=== PATIENT | male | born 1960 | race Caucasian/White ===

== ENCOUNTER 2017-01-05 03:53 | Emergency (ER) | END 2017-01-05 10:48 | disposition home or self-care (01) | DX: R10.13 Epigastric pain (principal); R40.2252 Coma scale, best verbal response, oriented, at arrival to emergency department; R40.2142 Coma scale, eyes open, spontaneous, at arrival to emergency department; R40.2362 Coma scale, best motor response, obeys commands, at arrival to emergency department | CPT/HCPCS: 36415; 71010; 74176; 80053; 81001; 83690; 84484; 85025; 93005; 96374; 96375; 99285; J2270; J2405; J7030 ==

== ENCOUNTER 2017-01-19 10:17 | Inpatient (IN) | payer MEDICAID ==
[2017-01-19] VITALS (21 sets, daily range): BP systolic 129–155; BP diastolic 72–88; PULSE 48–64; RESP 11–28; TEMP 98.3
[~2017-01-19] VITALS: Ht 188 cm; Wt 81.8 kg
[~2017-01-19 10:17] MED LIST: HYDR-902 PO; ONDA4TAB14 PO; RANI150T9 PO
[2017-01-19] MEDS ORDERED: SOD CHLORIDE 0.9% 1,000 ML IV STA (10:28)
[2017-01-19] MEDS ORDERED: ONDANSETRON 4 MG INJ ONE ×2 (10:28→19:58)
[2017-01-19] MEDS ORDERED: HYDROmorphONE 1 MG/ML SYG IV STA (10:28)
[2017-01-19] MEDS ORDERED: HYDROmorphONE 1 MG/ML SYG ONE (10:28)
[2017-01-19] MEDS ORDERED: ONDANSETRON 4 MG INJ IV STA (10:28)
[2017-01-19] MEDS ORDERED: PANTOPRAZOLE 40 MG INJ ONE (10:29)
[2017-01-19] MEDS ORDERED: PANTOPRAZOLE 40 MG INJ IV ONE (10:30)
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
[2017-01-19 10:50] LABS: BASOPHILS % 0.3 % (0.0-2.0); EOSINOPHILS # 0.2 10^3/ul (0.0-0.5); EOSINOPHILS % 1.4 % (0.0-7.0); HEMATOCRIT 41.6 % (42.0-52.0); HEMOGLOBIN 14.1 g/dl (14.0-18.0); LYMPHOCYTES # 2.8 10^3/ul (0.8-2.9); MEAN CORPUSCULAR HEMOGLOBIN 32.3 pg (29.0-33.0); MEAN CORPUSCULAR HGB CONC 33.9 g/dl (32.0-37.0); MEAN CORPUSCULAR VOLUME 95.4 fl (82.0-101.0); MEAN PLATELET VOLUME 11.1 fl (7.4-10.4); MONOCYTES % 8.9 % (0.0-11.0); NEUTROPHIL # 7.5 10^3/ul (1.6-7.5); NEUTROPHILS % 65.2 % (39.0-77.0); PLATELET COUNT 340 10^3/UL (140-415); RED BLOOD COUNT 4.36 10^6/ul (4.70-6.10); RED CELL DISTRIBUTION WIDTH 12.5 % (11.5-14.5); WHITE BLOOD COUNT 11.5 10^3/ul (4.8-10.8)
[2017-01-19 11:04] LABS: INR 0.98
[2017-01-19 11:05] LABS: PARTIAL THROMBOPLASTIN TIME 25.5 Sec (25.0-35.0)
[2017-01-19 11:07] LABS: ALANINE AMINOTRANSFERASE 30 IU/L (13-69); ALBUMIN 4.4 g/dl (3.3-4.9); ALBUMIN/GLOBULIN RATIO 1.15; ALKALINE PHOSPHATASE 91 IU/L (42-121); ANION GAP 16 (8-16); ASPARTATE AMINO TRANSFERASE 69 IU/L (15-46); BILIRUBIN,INDIRECT 0.8 mg/dl (0-1.1); BILIRUBIN,TOTAL 0.8 mg/dl (0.2-1.3); BLOOD UREA NITROGEN 17 mg/dl (7-20); CALCIUM 9.7 mg/dl (8.4-10.2); CARBON DIOXIDE 27 mmol/L (21-31); CHLORIDE 104 mmol/L (97-110); CREATININE 0.83 mg/dl (0.61-1.24); GLUCOSE 120 mg/dl (70-220); POTASSIUM 3.9 mmol/L (3.5-5.1); SODIUM 143 mmol/L (135-144); TOTAL PROTEIN 8.2 g/dl (6.1-8.1)
[2017-01-19 11:20] LABS: TROPONIN-I < 0.012 ng/ml (0.00-0.12)
--- NOTE | 2017-01-19 11:29 | RADRPT ---
PROCEDURE: Chest x-ray CLINICAL INDICATION: Abdominal pain TECHNIQUE: Chest single view COMPARISON: 01/05/2070 FINDINGS: The heart is normal in size. The pulmonary vessels are normal in caliber. The lungs are clear. Th e costophrenic angles are sharp. The visualized bony thorax is unremarkable. IMPRESSION: No acute cardiopulmonary disease. RPTAT: HH .Ridge Muñoz MD, Date Time Electronically viewed and signed by .Ridge Muñoz MD, MD on 01/19/2017 11:29 .W/
[2017-01-19 12:39] LABS: ADD UMIC NO; UR ASCORBIC ACID 40 mg/dL (NEGATIVE); UR BACTERIA FEW /HPF (NONE SEEN); UR BILIRUBIN (Dip) NEGATIVE (NEGATIVE); UR BLOOD (Dip) NEGATIVE (NEGATIVE); UR BUDDING YEAST FEW /HPF (NONE SEEN); UR CLARITY SLIGHTLY CLOUDY (CLEAR); UR COLOR YELLOW (YELLOW); UR GLUCOSE (Dip) NEGATIVE (NEGATIVE); UR KETONES (Dip) NEGATIVE (NEGATIVE); UR LEUKOCYTE ESTERASE (Dip) NEGATIVE Leu/ul (NEGATIVE); UR NITRITE (Dip) NEGATIVE (NEGATIVE); UR RBC 1 /HPF (0-5); UR SPECIFIC GRAVITY (Dip) 1.018 (1.003-1.030); UR TOTAL PROTEIN (Dip) NEGATIVE (NEGATIVE); UR UROBILINOGEN (Dip) NEGATIVE (NEGATIVE)
--- NOTE | 2017-01-19 13:10 | RADRPT ---
PROCEDURE: US Abdomen Limited . CLINICAL INDICATION: Abdominal pain TECHNIQUE: Multiple real-time images were acquired of the patient's right upper quadrant abdomen u tilizing a high resolution transducer. COMPARISON: CT January 05, 2017 FINDINGS: The liver measures 15.7 cm and demonstrates a normal echogenicity. The gallbladder is filled with a moderate amount of bile. Multiple echogenic, shadowing stones are identified in the gallbladder. Th e largest stone measures up to 1.9 cm. Stones are seen within the gallbladder neck. The gallbladder wall is at the upper limits of normal at 3.0 mm. No pericholecystic fluid is noted. The common bile duct measures 4.6 mm in diameter. The pancreas is not well visualized. Antegrade flow is seen in the portal vein. Right kidney measures 10.0 cm. Right kidney demonstrates a normal echogenicity. Mild right hydrone phrosis is identified. No echogenic, shadowing stones or solid masses are seen. IMPRESSION: Cholelithiasis with a gallbladder wall that measures at the upper limit of normal for thickness. If there is clinical suspicion for cholecystitis further characterization with CT, MRI or HIDA scan cou ld be helpful. Mild right hydronephrosis. Etiology is uncertain. If further characterization is needed repeat CT co uld be helpful. Pancreas not well visualized. If characterization of this structure is needed repeat exam or CT/MRI is recommended. RPTAT: AA .Augie Arango MD, MD Date Time Electronically viewed and signed by .Augie Arango MD, MD on 01/19/2017 13:10 .P/
[2017-01-19] MEDS ORDERED: CEFTRIAXONE 1 GM/50 ML (PMX) 50 ML IVPB ONE (14:30)
[2017-01-19] MEDS ORDERED: ONDANSETRON 4 MG INJ IV PRN ×4 (15:00→21:00)
[2017-01-19] MEDS ORDERED: ACETAMINOPHEN 325 MG TAB PO PRN ×3 (15:00→20:00)
[2017-01-19] MEDS: SOD CHLORIDE 0.9% 1,000 ML IV SCH (15:34)
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
[2017-01-19] MEDS ORDERED: ACETAMINOPHEN 650 MG SUPP PR PRN (16:00)
[2017-01-19] MEDS ORDERED: DOCUSATE SODIUM 100 MG CAP PO PRN (16:00)
[2017-01-19] MEDS ORDERED: NACL 0.9% 3 ML SYG IV SCH (16:00)
[2017-01-19] MEDS ORDERED: HYDROmorphONE 0.5 MG/0.5 ML SYG IV PRN (16:00)
[2017-01-19] MEDS: ACYCLOVIR 500 MG in SOD CHLORIDE 0.9% 100 ML IVPB SCH ×2 (16:30→23:00)
[2017-01-19] MEDS: PANTOPRAZOLE 40 MG INJ IV SCH (18:00)
--- NOTE | 2017-01-19 19:27 | CONS ---
Date/Time of Note Date/Time of Note DATE: 01/19/17 TIME: 19:25 Consultation Date/Type/Reason Admit Date/Time Date of Consultation: Jan 19, 2017 Past Medical History Medical History: other ([place] palsy) Past Surgical History Past Surgical Hx: no surgical history Family History Significant Family History: no pertinent family hx Social History Alcohol Use: none Smoking Status: Never smoker Drug Use: none Exam/Review of Systems Vital Signs Vitals Vital Signs Date Time Temp Pulse Resp B/P Pulse Ox O2 Delivery O2 Flow Rate FiO2 01/19/17 17:49 98.3 72 16 143/82 97 Room Air Exam Constitutional: alert, oriented, well developed Psych: no complaints Head: normocephalic Eyes: nl conjunctiva Neck: supple Respiratory: clear to auscultation Cardiovascular: regular rate and rhythm Gastrointestinal: soft, tender (to RUQ ) Musculoskeletal: nl extremities to inspection Skin: nl turgor Results Result Diagram: 01/19/17 1022 01/19/17 1022 Results 24 hrs Laboratory Tests Test 01/19/17 10:22 01/19/17 11:30 01/19/17 16:15 White Blood Count 11.5 #H Red Blood Count 4.36 L Hemoglobin 14.1 Hematocrit 41.6 L Mean Corpuscular Volume 95.4 Mean Corpuscular Hemoglobin 32.3 Mean Corpuscular Hemoglobin Concent 33.9 Red Cell Distribution Width 12.5 Platelet Count 340 # Mean Platelet Volume 11.1 H Neutrophils % 65.2 Lymphocytes % 24.0 Monocytes % 8.9 Eosinophils % 1.4 Basophils % 0.3 Nucleated Red Blood Cells % 0.0 Neutrophils # 7.5 Lymphocytes # 2.8 Monocytes # 1.0 H Eosinophils # 0.2 Basophils # 0.0 Nucleated Red Blood Cells # 0.0 Prothrombin Time 13.0 Prothrombin Time Ratio 1.0 INR International Normalized Ratio 0.98 Activated Partial Thromboplast Time 25.5 Sodium Level 143 Potassium Level 3.9 Chloride Level 104 Carbon Dioxide Level 27 Anion Gap 16 Blood Urea Nitrogen 17 Creatinine 0.83 Glucose Level 120 Calcium Level 9.7 Total Bilirubin 0.8 Direct Bilirubin 0.00 Indirect Bilirubin 0.8 Aspartate Amino Transf (AST/SGOT) 69 H Alanine Aminotransferase (ALT/SGPT) 30 Alkaline Phosphatase 91 Troponin I < 0.012 Total Protein 8.2 H Albumin 4.4 Globulin 3.80 H Albumin/Globulin Ratio 1.15 Lipase 84 Urine Color YELLOW Urine Clarity SLIGHTLY CLOUDY A Urine pH 8.0 Urine Specific [place] 1.018 Urine Ketones NEGATIVE Urine Nitrite NEGATIVE Urine Bilirubin NEGATIVE Urine Urobilinogen NEGATIVE Urine Leukocyte Esterase NEGATIVE Urine Microscopic RBC 1 Urine Microscopic WBC 1 Urine Bacteria FEW A Urine Yeast (Budding) FEW A Urine Hemoglobin NEGATIVE Urine Glucose NEGATIVE Urine Total Protein NEGATIVE HIV (1&2) Antibody NEGATIVE Medications Medications Current Medications Sodium Chloride (NS) 1,000 ml @ 75 mls/hr [id number] IV ; Start 01/19/17 at 15:34 Ondansetron HCl (Zofran Inj) 4 mg Q6H PRN IV NAUSEA AND/OR VOMITING; Start at 16:00 Acetaminophen (Tylenol Tab) 650 mg Q6H PRN PO PAIN LEVEL 1-3 OR FEVER; Start 01/19/17 at 16:00 Acetaminophen (Tylenol Supp) 650 mg Q6H PRN [place] PAIN LEVEL 1-3 OR FEVER; Start 01/19/17 at 16:00 Hydromorphone HCl (Dilaudid) 0.5 mg Q4H PRN IV SEVERE PAIN LEVEL 7-10; Start 01/19/17 at 16:00 Docusate Sodium 100 mg 100 mg Q12H PRN PO CONSTIPATION; Start 01/19/17 at 16: 00 Acyclovir/Sodium Chloride (Zovirax/NS) 100 ml @ 100 mls/hr Q8 IVPB ; Start at 16:30 Pantoprazole (Protonix Iv) 40 mg BID@06,18 IV ; Start 01/19/17 at 18:00 ONEIL JOHNSON MD Jan 19, 2017 19:26
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
[2017-01-19] MEDS: D5-NS + KCL 20 MEQ 1,000 ML IV SCH ×2 (19:31→23:20)
[2017-01-19] MEDS ORDERED: LIDOCAINE 2%/EPI 30 ML INJ ONE (19:37)
[2017-01-19] MEDS ORDERED: BUPIVACAINE 0.25% (MPF) 30 ML INJ ONE (19:37)
[2017-01-19] MEDS ORDERED: LIDOCAINE 2% (SDV) 5 ML INJ ONE (19:41)
[2017-01-19] MEDS ORDERED: SUCCINYLCHOLINE CHLORIDE 100 MG/5 ML SYG IV ONE (19:41)
[2017-01-19] MEDS ORDERED: PROPOFOL 20 ML ONE (19:41)
[2017-01-19] MEDS ORDERED: FENTAnyl 50 MCG/ML VIAL ONE (19:42)
[2017-01-19] MEDS ORDERED: MIDAZOLAM 1 MG/ML 2 ML INJ ONE (19:42)
[2017-01-19] MEDS ORDERED: CEFAZOLIN 1 GM INJ ONE (19:57)
[2017-01-19] MEDS ORDERED: METOCLOPRAMIDE 10 MG INJ ONE (19:58)
[2017-01-19] MEDS ORDERED: ROCURONIUM 50 MG INJ ONE (19:59)
[2017-01-19] MEDS ORDERED: morphine 2 MG INJ IV PRN (20:00)
[2017-01-19] MEDS: AMPICILLIN/SULB 3 GM/NS (PMX) 100 ML IVPB SCH (20:00)
[2017-01-19] MEDS ORDERED: IBUPROFEN 600 MG TAB PO PRN (20:00)
[2017-01-19] MEDS ORDERED: SUGAMMADEX SODIUM 200 MG/2 ML VIAL IV ONE (20:14)
[2017-01-19] MEDS ORDERED: KETOROLAC 30 MG INJ ONE (20:14)
--- NOTE | 2017-01-19 20:23 | SIPON ---
Date/Time of Note Date/Time of Note DATE: 01/19/17 TIME: 20:22 Operative Report Preoperative Diagnosis Cholelithiasis Postoperative Diagnosis Same Operation/Procedure Performed Laparoscopic cholecystectomy Surgeon see signature line marketing administrative assistant None Anesthesia: general Estimated blood loss: 10 - 50 ml's Transfusion Required none Specimen Gallbladder with stone Grafts/Implants none Complications none ONEIL JOHNSON MD Jan 19, 2017 20:23
--- NOTE | 2017-01-19 20:27 | OPR ---
Date/Time of Note Date/Time of Note DATE: 01/19/17 TIME: 20:23 Operative Report Procedure Date: Jan 19, 2017 Preoperative Diagnosis Cholelithiasis Postoperative Diagnosis Same Operation/Procedure Performed Laparoscopic cholecystectomy Surgeon see signature line Dinkey Driver None Anesthesia Type: general Anesthesiologist: AMBROSIO TORRES MD Estimated Blood Loss: 0 - 10 ml's Transfusion none Specimen Gallbladder with stones Grafts/Implants none Complications none Pt Condition Post Procedure: stable Disposition: PACU Indications The patient is a 56-year-old male with biliary colic versus cholecystitis. I discussed proceeding with a laparoscopic, possible open, cholecystectomy, possible cholangiogram. All benefits risks and alternatives were discussed in detail with the patient. All questions answered. The patient elects to proceed Procedure Description The patient was brought to operative room and placed supine on the table. After preop antibiotics and SCDs were applied, the patient was intubated. The abdomen was cleaned, prepped and draped in usual sterile fashion. All incisions were infiltrated with 1% lidocaine with epi prior to incision. An 11 mm incision was made in the umbilicus. Using a 5 minute laparoscopic containing trocar, the abdomen was entered direct vision insufflated 50 mm of CO2. The following trochars and placed direct vision a right upper quadrant 5 mm right lower quadrant 5 mm subxiphoid 5 mm. The 5 mm umbilical trocar was changed 11 mm direct vision. Gallbladder was thickened and consistent with chronic cholecystitis. I grasped the gallbladder at the fundus and retracted over the liver. Leonard's pouch was easily identified and retracted laterally. The peritoneum of the Leonard's was scored medially and laterally. I was able to dissect out skeletonize the cystic duct and artery. I dissected the gallbladder off the cystic plate of the liver. I I identified my critical view of safety. I saw the cystic duct and artery with no intervening structures. Both the duct and artery were clipped twice proximally once distally individually and divided. The gallbladder was then removed from the gallbladder fossa with electrocautery. He was placed in Endo Catch bag and removed and the 12 mm trocar site. I visualized the gallbladder fossa. It was hemostatic. There was no evidence of bleeding or bile staining. I desufflated the abdomen and removed all trochars. The fascia of the 12 mm trocar site was closed with 0 Vicryl. Skin incisions were closed with 4 Monocryl, Mastisol, and Steri-Strips. A 2 x 2 gauze and Tegaderm was placed over the bill excision only. *Procedure well was extubated in the OR and transferred to recovery in stable condition ONEIL JOHNSON MD Jan 19, 2017 20:27
[2017-01-19] MEDS ORDERED: PROCHLORPERAZINE 10 MG INJ IV PRN (21:00)
[2017-01-19] MEDS ORDERED: HYDROmorphONE (0.2 MG/ML) 10ML SYG IV PRN ×2 (21:00)
[2017-01-19] MEDS ORDERED: FAMOTIDINE 20 MG INJ IV SCH (21:00)
[2017-01-19] MEDS ORDERED: OXYCODONE/ACETAMINOPHEN (5/325) TAB PO PRN ×2 (21:00)
[2017-01-19] MEDS ORDERED: DIPHENHYDRAMINE 50 MG INJ IV PRN (21:00)
[2017-01-19] MEDS ORDERED: MEPERIDINE 25 MG INJ IV PRN (21:00)
[2017-01-19] MEDS ORDERED: FENTAnyl 50 MCG/ML VIAL IV PRN (21:00)
[2017-01-20 00:15] VITALS: BP 132/74; PULSE 48; RESP 17
[2017-01-20 00:43] VITALS: BP 139/83; RESP 20
[2017-01-20] MEDS: ACYCLOVIR 500 MG in SOD CHLORIDE 0.9% 100 ML IVPB SCH ×4 (00:51→21:10)
[2017-01-20] MEDS: AMPICILLIN/SULB 3 GM/NS (PMX) 100 ML IVPB SCH ×3 (02:35→13:22)
[2017-01-20] MEDS: SOD CHLORIDE 0.9% 1,000 ML IV SCH ×2 (04:54→18:14)
[2017-01-20] MEDS: D5-NS + KCL 20 MEQ 1,000 ML IV SCH ×3 (05:14→15:31)
[2017-01-20 05:20] LABS: BASOPHILS % 0.4 % (0.0-2.0); EOSINOPHILS # 0.1 10^3/ul (0.0-0.5); EOSINOPHILS % 2.1 % (0.0-7.0); HEMATOCRIT 36.7 % (42.0-52.0); HEMOGLOBIN 12.3 g/dl (14.0-18.0); LYMPHOCYTES # 0.9 10^3/ul (0.8-2.9); LYMPHOCYTES % 17.4 % (15.0-51.0); MEAN CORPUSCULAR HEMOGLOBIN 31.9 pg (29.0-33.0); MEAN CORPUSCULAR HGB CONC 33.5 g/dl (32.0-37.0); MEAN CORPUSCULAR VOLUME 95.1 fl (82.0-101.0); MEAN PLATELET VOLUME 11.3 fl (7.4-10.4); MONOCYTE # 0.7 10^3/ul (0.3-0.9); MONOCYTES % 12.6 % (0.0-11.0); NEUTROPHIL # 3.5 10^3/ul (1.6-7.5); NEUTROPHILS % 67.3 % (39.0-77.0); PLATELET COUNT 217 10^3/UL (140-415); RED BLOOD COUNT 3.86 10^6/ul (4.70-6.10); RED CELL DISTRIBUTION WIDTH 12.6 % (11.5-14.5); WHITE BLOOD COUNT 5.2 10^3/ul (4.8-10.8)
[2017-01-20] MEDS: PANTOPRAZOLE 40 MG INJ IV SCH (06:15)
[2017-01-20] MEDS: HYDROCODONE/APAP (5/325) TAB PO PRN ×3 (06:17→21:10)
[2017-01-20] MEDS: ENOXAPARIN 40 MG/0.4 ML SYG SC SCH (06:18)
[2017-01-20 07:26] VITALS: BP 139/80; RESP 18
[2017-01-20 09:36] LABS: ALBUMIN 3.6 g/dl (3.3-4.9); ALBUMIN/GLOBULIN RATIO 1.2; BILIRUBIN,DIRECT 0.4 mg/dl (0.00-0.20); BILIRUBIN,INDIRECT 1.3 mg/dl (0-1.1); BILIRUBIN,TOTAL 1.7 mg/dl (0.2-1.3); CALCIUM 8.5 mg/dl (8.4-10.2); CHOL/HDL RATIO 3.2 RATIO; CREATININE 0.91 mg/dl (0.61-1.24); MAGNESIUM 1.8 mg/dl (1.7-2.5); PHOSPHORUS 3.2 mg/dl (2.5-4.9); POTASSIUM 3.8 mmol/L (3.5-5.1); TOTAL PROTEIN 6.6 g/dl (6.1-8.1)
[2017-01-20 09:48] LABS: THYROID STIMULATING HORMONE 2.63 MIU/L (0.465-4.680)
[2017-01-20 15:23] VITALS: BP 140/80; RESP 18
--- NOTE | 2017-01-20 17:34 | PN ---
Date/Time of Note Date/Time of Note DATE: 01/20/17 TIME: 17:32 Assessment/Plan VTE Prophylaxis VTE Prophylaxis Intervention: SCD's Lines/Catheters IV C[facility]ter Type (from [facility]): Peripheral IV Urinary Cath still in place: No Assessment/Plan Assessment/Plan 1. Acute cholecystitis s/p laproscopic cholecystectomy 2. Recent outbreak of HSV/shingles. -Patient with active lesions currently. Therefore, we will treat with Acyclovir 5 days course along with isolation precautions. 3. Lala's palsy, recent -Patient on steroid treatment as outpatient. At this time, we will hold off to therapy and will defer for outpatient follow-up. 4. Leukocytosis, mild, likely secondary to #1 and #2. -Treatment as above. SCD for DVT prophylaxis Subjective 24 Hr Interval Summary Free Text/Dictation s/p laproscopic cholecystectomy doing well, still c/o abd nunez and not passing gas Exam/Review of Systems Vital Signs Vitals Vital Signs Date Time Temp Pulse Resp B/P Pulse Ox O2 Delivery O2 Flow Rate FiO2 01/20/17 15:23 98.0 62 18 140/80 98 01/20/17 00:15 Nasal Cannula 2.0 Intake and Output 01/19/17 01/19/17 01/20/17 15:00 23:00 07:00 Intake Total 1000 ml 820 ml 1450 ml Output Total 15 ml 700 ml Balance 1000 ml 805 ml 750 ml Exam Constitutional: alert Psych: no complaints Head: normocephalic Eyes: nl conjunctiva ENMT: nl external ears & nose Neck: non-tender, supple Respiratory: clear to auscultation, diminished breath sounds, normal air movement Cardiovascular: nl pulses, regular rate and rhythm Gastrointestinal: non-tender, soft Musculoskeletal: muscle tone, muscle weakness, nl extremities to inspection, nl gait and stance Neurological: [employer] CROSSING GUARD II-XII intact, nl mental status, nl speech, nl strength Results Result Diagram: 01/20/17 0439 01/20/17 0740 Results 24 hrs Laboratory Tests Test 01/20/17 04:39 01/20/17 07:40 White Blood Count 5.2 # Red Blood Count 3.86 L Hemoglobin 12.3 L Hematocrit 36.7 L Mean Corpuscular Volume 95.1 Mean Corpuscular Hemoglobin 31.9 Mean Corpuscular Hemoglobin Concent 33.5 Red Cell Distribution Width 12.6 Platelet Count 217 # Mean Platelet Volume 11.3 H Neutrophils % 67.3 Lymphocytes % 17.4 Monocytes % 12.6 H Eosinophils % 2.1 Basophils % 0.4 Nucleated Red Blood Cells % 0.0 Neutrophils # 3.5 Lymphocytes # 0.9 Monocytes # 0.7 Eosinophils # 0.1 Basophils # 0.0 Nucleated Red Blood Cells # 0.0 Hemoglobin A1c 5.1 Sodium Level 141 Potassium Level 3.8 Chloride Level 106 Carbon Dioxide Level 27 Anion Gap 12 Blood Urea Nitrogen 11 Creatinine 0.91 Glucose Level 90 Calcium Level 8.5 Phosphorus Level 3.2 Magnesium Level 1.8 Total Bilirubin 1.7 H Direct Bilirubin 0.40 #H Indirect Bilirubin 1.3 H Aspartate Amino Transf (AST/SGOT) 965 #H Alanine Aminotransferase (ALT/SGPT) 525 H Alkaline Phosphatase 115 Total Protein 6.6 # Albumin 3.6 Globulin 3.00 Albumin/Globulin Ratio 1.20 Triglycerides Level 95 Cholesterol Level 152 LDL Cholesterol, Calculated 86 HDL Cholesterol 47 Cholesterol/HDL Ratio 3.2 Thyroid Stimulating Hormone (TSH) 2.630 Medications Medications Current Medications Sodium Chloride (NS) 1,000 ml @ 75 mls/hr [id number] IV ; Start 01/19/17 at 15:34 Acetaminophen (Tylenol Supp) 650 mg Q6H PRN [place] PAIN LEVEL 1-3 OR FEVER; Start 01/19/17 at 16:00 Hydromorphone HCl (Dilaudid) 0.5 mg Q4H PRN IV SEVERE PAIN LEVEL 7-10; Start 01/19/17 at 16:00 Docusate Sodium 100 mg 100 mg Q12H PRN PO CONSTIPATION; Start 01/19/17 at 16: 00 Acyclovir 500 mg/ Sodium Chloride 100 ml @ 100 mls/hr Q8 IVPB Last administered on 01/20/17t 15:50; Admin Dose 100 MLS/HR; Start 01/19/17 at 16: 30 Ampicillin Sodium/ Sulbactam Sodium (Unasyn 3gm/NS (Pmx)) 100 ml @ 200 mls/hr Q6H IVPB Last administered on 01/20/17t 13:22; Admin Dose 200 MLS/HR; Start 01/19/17 at 20:00; Stop 01/20/17 at 19:59 Morphine Sulfate (morphine) 2 mg Q2H PRN IV PAIN LEVEL 6-10; Start 01/19/17 at 20:00 Acetaminophen/ Hydrocodone Bitart ([place] (5/325)) 1 tab Q6H PRN PO PAIN LEVEL 6 -10 Last administered on 01/20/17 11:52; Admin Dose 1 TAB; Start 01/19/17 at 20:00 Acetaminophen (Tylenol Tab) 650 mg Q6H PRN PO PAIN AND OR ELEVATED TEMP; Start 01/19/17 at 20:00 Ibuprofen (Motrin) 600 mg Q6H PRN PO PAIN LEVEL 1-5; Start 01/19/17 at 20:00 Ondansetron HCl 4 mg 4 mg Q6H PRN IV NAUSEA AND/OR VOMITING; Start 01/19/17 at 20:00 Potassium Chloride/Dextrose/ Sod Cl (D5-NS + KCl 20 Meq) 1,000 ml @ 100 mls/hr Q10H IV Last administered on 01/20/17 14:08; Admin Dose 100 MLS/HR; Start at 19:31 Enoxaparin Sodium (Lovenox) 40 mg DAILY@07 SC Last administered on 01/20/17 06:18; Admin Dose 40 MG; Start 01/20/17 at 07:00 Famotidine (Pepcid Iv) 20 mg BID IV ; Start 01/20/17 at 21:00 NIRANJAN MORA MD Jan 20, 2017 17:34
[2017-01-20 19:40] VITALS: BP 137/81; RESP 18
--- NOTE | 2017-01-20 19:53 | PN ---
Date/Time of Note Date/Time of Note DATE: 01/20/17 TIME: 19:52 Assessment/Plan Lines/Catheters IV C[facility] Type (from [facility]): Peripheral IV Slater in Place (from Nrs): No Assessment/Plan Assessment/Plan Postop day 1 status post lap danielle Elevated LFTs today, concerned about common bile duct stone If LFTs persist tomorrow, recommend MRCP If LFTs normalized, can discharge home Subjective 24 Hr Interval Summary Constitutional: other (Complaining of some abdominal pain, passing flatus) Exam/Review of Systems Vital Signs Vitals Vital Signs Date Time Temp Pulse Resp B/P Pulse Ox O2 Delivery O2 Flow Rate FiO2 01/20/17 15:23 98.0 62 18 140/80 98 01/20/17 00:15 Nasal Cannula 2.0 Intake and Output 01/19/17 01/19/17 01/20/17 15:00 23:00 07:00 Intake Total 1000 ml 820 ml 1450 ml Output Total 15 ml 700 ml Balance 1000 ml 805 ml 750 ml Exam Constitutional: alert, oriented, well developed Respiratory: clear to auscultation Cardiovascular: regular rate and rhythm Results Result Diagram: 01/20/17 0439 01/20/17 0740 ONEIL JOHNSON MD Jan 20, 2017 19:53
[2017-01-20] MEDS: FAMOTIDINE 20 MG INJ IV SCH (21:10)
[2017-01-21 02:00] VITALS: BP 147/90; RESP 18
[2017-01-21] MEDS: D5-NS + KCL 20 MEQ 1,000 ML IV SCH ×2 (02:23→11:31)
[2017-01-21] MEDS: ACYCLOVIR 500 MG in SOD CHLORIDE 0.9% 100 ML IVPB SCH ×2 (05:46→13:25)
[2017-01-21 05:58] LABS: BASOPHILS % 0.4 % (0.0-2.0); EOSINOPHILS # 0.3 10^3/ul (0.0-0.5); EOSINOPHILS % 5.4 % (0.0-7.0); HEMATOCRIT 40.7 % (42.0-52.0); HEMOGLOBIN 13.4 g/dl (14.0-18.0); LYMPHOCYTES % 17.2 % (15.0-51.0); MEAN CORPUSCULAR HEMOGLOBIN 31.5 pg (29.0-33.0); MEAN CORPUSCULAR HGB CONC 32.9 g/dl (32.0-37.0); MEAN CORPUSCULAR VOLUME 95.8 fl (82.0-101.0); MEAN PLATELET VOLUME 11.7 fl (7.4-10.4); MONOCYTE # 0.6 10^3/ul (0.3-0.9); MONOCYTES % 10.7 % (0.0-11.0); NEUTROPHIL # 3.8 10^3/ul (1.6-7.5); NEUTROPHILS % 65.9 % (39.0-77.0); PLATELET COUNT 242 10^3/UL (140-415); RED BLOOD COUNT 4.25 10^6/ul (4.70-6.10); RED CELL DISTRIBUTION WIDTH 12.5 % (11.5-14.5); WHITE BLOOD COUNT 5.7 10^3/ul (4.8-10.8)
[2017-01-21] MEDS: ENOXAPARIN 40 MG/0.4 ML SYG SC SCH (06:21)
[2017-01-21 06:45] LABS: ALBUMIN 3.8 g/dl (3.3-4.9); ALBUMIN/GLOBULIN RATIO 1.22; BILIRUBIN,INDIRECT 0.7 mg/dl (0-1.1); BILIRUBIN,TOTAL 0.7 mg/dl (0.2-1.3); CALCIUM 8.9 mg/dl (8.4-10.2); CREATININE 0.86 mg/dl (0.61-1.24); POTASSIUM 4.5 mmol/L (3.5-5.1); TOTAL PROTEIN 6.9 g/dl (6.1-8.1)
[2017-01-21] MEDS: SOD CHLORIDE 0.9% 1,000 ML IV SCH (07:34)
[2017-01-21 07:58] VITALS: BP 128/71; RESP 20
[2017-01-21 08:22] VITALS: BP 147/84; RESP 20
[2017-01-21] MEDS: FAMOTIDINE 20 MG INJ IV SCH (08:52)
--- NOTE | 2017-01-21 11:07 | PN ---
Date/Time of Note Date/Time of Note DATE: 01/21/17 TIME: 11:05 Assessment/Plan VTE Prophylaxis VTE Prophylaxis Intervention: SCD's Lines/Catheters IV [facility]ter Type (from [facility]): Peripheral IV Urinary Cath still in place: No Assessment/Plan Assessment/Plan 1. Acute cholecystitis s/p laproscopic cholecystectomy 2. Recent outbreak of HSV/shingles. -Patient with active lesions currently. Therefore, we will treat with Acyclovir 5 days course along with isolation precautions. 3. Lala's palsy, recent -Patient on steroid treatment as outpatient. At this time, we will hold off to therapy and will defer for outpatient follow-up. 4. Leukocytosis, mild, likely secondary to #1 and #2. -Treatment as above. SCD for DVT prophylaxis D/c home today after pt voids Subjective 24 Hr Interval Summary Free Text/Dictation PT STABLE, waiting for bed Exam/Review of Systems Vital Signs Vitals Vital Signs Date Time Temp Pulse Resp B/P Pulse Ox O2 Delivery O2 Flow Rate FiO2 01/21/17 08:22 98.6 50 20 147/84 97 01/20/17 00:15 Nasal Cannula 2.0 Intake and Output 01/20/17 01/20/17 01/21/17 15:00 23:00 07:00 Intake Total 800 ml 1080 ml 1300 ml Output Total 2200 ml Balance 800 ml 1080 ml -900 ml Exam Constitutional: alert Psych: no complaints Head: normocephalic Eyes: nl conjunctiva ENMT: nl external ears & nose Neck: non-tender, supple Respiratory: clear to auscultation, diminished breath sounds, normal air movement Cardiovascular: nl pulses, regular rate and rhythm Gastrointestinal: non-tender, soft Musculoskeletal: muscle tone, muscle weakness, nl extremities to inspection, nl gait and stance Neurological: FIBERGLASS MODEL MAKER II-XII intact, nl mental status, nl speech, nl strength Results Result Diagram: 01/21/17 0436 01/21/17 0436 Results 24 hrs Laboratory Tests Test 01/21/17 04:36 White Blood Count 5.7 Red Blood Count 4.25 L Hemoglobin 13.4 L Hematocrit 40.7 L Mean Corpuscular Volume 95.8 Mean Corpuscular Hemoglobin 31.5 Mean Corpuscular Hemoglobin Concent 32.9 Red Cell Distribution Width 12.5 Platelet Count 242 Mean Platelet Volume 11.7 H Neutrophils % 65.9 Lymphocytes % 17.2 Monocytes % 10.7 Eosinophils % 5.4 Basophils % 0.4 Nucleated Red Blood Cells % 0.0 Neutrophils # 3.8 Lymphocytes # 1.0 Monocytes # 0.6 Eosinophils # 0.3 Basophils # 0.0 Nucleated Red Blood Cells # 0.0 Sodium Level 143 Potassium Level 4.5 Chloride Level 105 Carbon Dioxide Level 30 Anion Gap 13 Blood Urea Nitrogen 7 Creatinine 0.86 Glucose Level 93 Calcium Level 8.9 Total Bilirubin 0.7 Direct Bilirubin 0.00 # Indirect Bilirubin 0.7 Aspartate Amino Transf (AST/SGOT) 305 #H Alanine Aminotransferase (ALT/SGPT) 411 H Alkaline Phosphatase 119 Total Protein 6.9 Albumin 3.8 Globulin 3.10 Albumin/Globulin Ratio 1.22 Lipase 44 Medications Medications Current Medications Sodium Chloride (NS) 1,000 ml @ 75 mls/hr [id number] IV ; Start 01/19/17 at 15:34 Acetaminophen (Tylenol Supp) 650 mg Q6H PRN [place] PAIN LEVEL 1-3 OR FEVER; Start 01/19/17 at 16:00 Hydromorphone HCl (Dilaudid) 0.5 mg Q4H PRN IV SEVERE PAIN LEVEL 7-10; Start 01/19/17 at 16:00 Docusate Sodium 100 mg 100 mg Q12H PRN PO CONSTIPATION; Start 01/19/17 at 16: 00 Acyclovir/Sodium Chloride (Zovirax/NS) 100 ml @ 100 mls/hr Q8 IVPB Last administered on 01/21/17 05:46; Admin Dose 100 MLS/HR; Start 01/19/17 at 16: 30 Morphine Sulfate (morphine) 2 mg Q2H PRN IV PAIN LEVEL 6-10; Start 01/19/17 at 20:00 Acetaminophen/ Hydrocodone Bitart ([place] (5/325)) 1 tab Q6H PRN PO PAIN LEVEL 6 -10 Last administered on 01/20/17 21:10; Admin Dose 1 TAB; Start 01/19/17 at 20:00 Acetaminophen (Tylenol Tab) 650 mg Q6H PRN PO PAIN AND OR ELEVATED TEMP; Start 01/19/17 at 20:00 Ibuprofen (Motrin) 600 mg Q6H PRN PO PAIN LEVEL 1-5; Start 01/19/17 at 20:00 Ondansetron HCl 4 mg 4 mg Q6H PRN IV NAUSEA AND/OR VOMITING; Start 01/19/17 at 20:00 Potassium Chloride/Dextrose/ Sod Cl (D5-NS + KCl 20 Meq) 1,000 ml @ 100 mls/hr Q10H IV Last administered on 01/21/17 02:23; Admin Dose 100 MLS/HR; Start at 19:31 Enoxaparin Sodium (Lovenox) 40 mg DAILY@07 SC Last administered on 01/21/17 06:21; Admin Dose 40 MG; Start 01/20/17 at 07:00 Famotidine (Pepcid Iv) 20 mg BID IV Last administered on 01/21/17 08:52; Admin Dose 20 MG; Start 01/20/17 at 21:00 NIRANJAN MORA MD Jan 21, 2017 11:07
--- NOTE | 2017-01-21 11:08 | PDOCDIS ---
Discharge Instructions CONDITION Patient Condition: Good HOME CARE INSTRUCTIONS: Special Diet: Regular ACTIVITY: Activity Restrictions: Slowly Increase Activity Rest between Activity Avoid heavy lifting Avoid Heavy Housework FOLLOW UP/APPOINTMENTS Follow-up Plan follow up with her own PMD in 1-2 week after discharge, Follow up with general surgery in 1-2 week NIRANJAN MORA MD Jan 21, 2017 11:08
[2017-01-21] MEDS ORDERED: HYDR-906 PO (11:12)
[2017-01-21] MEDS ORDERED: ONDA4TAB14 PO (11:12)
[2017-01-21] MEDS ORDERED: RANI150T9 PO (11:12)
[2017-01-21] MEDS ORDERED: ACYC400T2 PO (11:12)
[2017-01-21] MEDS ORDERED: GABA100C PO (11:13)
[2017-01-21 12:32] LABS: HSV 2 IGG ANTIBODY <0.90 index
[2017-01-21] MEDS: HYDROCODONE/APAP (5/325) TAB PO PRN (13:13)
--- NOTE | 2017-01-21 18:53 | DS ---
Date/Time of Note Date/Time of Note DATE: 01/21/17 TIME: 18:53 Discharge Summary Admission/Discharge Info Admit Date/Time Jan 19, 2017 at 20:31 Discharge Date/Time Jan 21, 2017 at 14:54 Discharge Diagnosis 1. Acute cholecystitis s/p laproscopic cholecystectomy 2. Recent outbreak of HSV/shingles. 3. Lala's palsy, recent 4. Leukocytosis, mild, likely secondary to #1 and #2 Patient Condition: Good Consults General surgery Procedures laproscopic cholecystectomy By Hx of Present Illness 56-year-old male with a past medical history of recently diagnosed with shingles/HSV, Lala's palsy for which patient is also on Medrol Dosepak outpatient, presented to the emergency room for evaluation of generalized abdominal pain. Patient reports pain mostly epigastric area, and all 4 quadrant. He also had associated nausea. He denied any fever, chills,vomiting, hematemesis,hematochezia,melena,dysuria,urgency,hematuria, diarrhea, or constipation. Patient also denies chest pain, palpitation, shortness of breath , headache, confusion, or other constitutional symptoms. In the emergency room, patient's initial labs showed elevated WBC 11,500, mildly elevated AST 69. Otherwise unremarkable. A urinalysis is negative for any UTI. Patient's gallbladder ultrasound showed cholelithiasis with some gallbladder wall thickening suggestive of cholecystitis. Patient was treated with ceftriaxone, Protonix, normal saline, Dilaudid and Zofran in the emergency room and a surgery consultation with Dr. Wyman was called and was admitted for further evaluation. he was admitted for leucocytosis, acute cholecystitis,. started on IV abx . Hospital Course pt was treated with IV abx, he was evaluated by Gen surgery and underwent Laproscopic cholecystectomy./ post op course was unremarkable except continuous Abd pain. he was given IV pain meds for few days post op. he also had recent outbreak of shingles with Humphreys palsy. he was treated with acyclovir for it, also continued on steroids and givenvpain meds on discharge he has been explained about discharge plan and he understood it. Home Meds Active Scripts Gabapentin* (Neurontin*) 100 Mg Capsule, 100 MG PO BID, #30 CAP Prov:NIRANJAN MORA MD 01/21/17 Hydrocodone/Acetaminophen ([place] 5-325 Tablet) 1 Each Tablet, 1 EACH PO Q8, #20 TAB Prov:NIRANJAN MORA MD 01/21/17 Acyclovir* (Acyclovir*) 400 Mg Tablet, 400 MG PO TID for shingles for 5 Days, # 15 TAB Prov:NIRANJAN MORA MD 01/21/17 Ondansetron (Ondansetron Odt) 4 Mg Tab.rapdis, 4 MG PO Q6H Y for NAUSEA AND/OR VOMITING, #20 TAB Prov:NIRANJAN MORA MD 01/21/17 Ranitidine Hcl* (Zantac*) 150 Mg Tablet, 150 MG PO BID Y for EPIGASTRIC PAIN, # 30 TAB Prov:NIRANJAN MORA MD 01/21/17 Discontinued Scripts Hydrocodone/Acetaminophen ([place] 10-325 Tablet) 1 Each Tablet, 1 TAB PO Q6H Y for PAIN, #20 TAB Prov:GAIL ABDULLAHI 01/05/17 Follow-up Plan follow up with her own PMD in 1-2 week after discharge, Follow up with general surgery in 1-2 week Primary Care Provider Care Physician No Primary Time spent on discharge: > 30 minutes Pending Labs Laboratory Tests Test 01/21/17 04:36 White Blood Count 5.710^3/ul (4.8-10.8) Red Blood Count 4.2510^6/ul (4.70-6.10) Hemoglobin 13.4g/dl (14.0-18.0) Hematocrit 40.7% (42.0-52.0) Mean Corpuscular Volume 95.8fl (82.0-101.0) Mean Corpuscular Hemoglobin 31.5pg (29.0-33.0) Mean Corpuscular Hemoglobin Concent 32.9g/dl (32.0-37.0) Red Cell Distribution Width 12.5% (11.5-14.5) Platelet Count 44777^3/UL (140-415) Mean Platelet Volume 11.7fl (7.4-10.4) Neutrophils % 65.9% (39.0-77.0) Lymphocytes % 17.2% (15.0-51.0) Monocytes % 10.7% (0.0-11.0) Eosinophils % 5.4% (0.0-7.0) Basophils % 0.4% (0.0-2.0) Nucleated Red Blood Cells % 0.0/100WBC (0.0-0.0) Neutrophils # 3.810^3/ul (1.6-7.5) Lymphocytes # 1.010^3/ul (0.8-2.9) Monocytes # 0.610^3/ul (0.3-0.9) Eosinophils # 0.310^3/ul (0.0-0.5) Basophils # 0.010^3/ul (0.0-0.1) Nucleated Red Blood Cells # 0.010^3/ul (0.0-0.0) Sodium Level 143mmol/L (135-144) Potassium Level 4.5mmol/L (3.5-5.1) Chloride Level 105mmol/L (97-110) Carbon Dioxide Level 30mmol/L (21-31) Anion Gap 13 (8-16) Blood Urea Nitrogen 7mg/dl (7-20) Creatinine 0.86mg/dl (0.61-1.24) Glucose Level 93mg/dl (70-220) Calcium Level 8.9mg/dl (8.4-10.2) Total Bilirubin 0.7mg/dl (0.2-1.3) Direct Bilirubin 0.00mg/dl (0.00-0.20) Indirect Bilirubin 0.7mg/dl (0-1.1) Aspartate Amino Transf (AST/SGOT) 305IU/L (15-46) Alanine Aminotransferase (ALT/SGPT) 411IU/L (13-69) Alkaline Phosphatase 119IU/L (42-121) Total Protein 6.9g/dl (6.1-8.1) Albumin 3.8g/dl (3.3-4.9) Globulin 3.10g/dl (1.3-3.2) Albumin/Globulin Ratio 1.22 Lipase 44U/L (23-300) NIRANJAN MORA MD Jan 21, 2017 18:53 (3.3-4.9) Globulin 3.10g/dl (1.3-3.2) Albumin/Globulin Ratio 1.22 Lipase 44U/L (23-300) NIRANJAN MORA MD Jan 21, 2017 18:53
[2017-01-21] MEDS ORDERED: FAMOTIDINE 20 MG TAB PO SCH (21:00)
== END 2017-01-21 14:54 | disposition home or self-care (01) | DRG 419 ==
LOC: E/R 10:17 → MS1 20:31
PROVIDERS: ADMIT Internal Medicine; ATTEND Internal Medicine
PROC: 0FT44ZZ Resection of Gallbladder, Percutaneous Endoscopic Approach (ICD-10-PCS; principal; 2017-01-19 19:30)
DX: K80.00 Calculus of gallbladder with acute cholecystitis without obstruction (principal); B02.9 Zoster without complications; D72.829 Elevated white blood cell count, unspecified; G51.0 Bell's palsy
CPT/HCPCS: 36415; 71010; 76705; 80053; 80061; 81001; 81003; 83036; 83690; 83735; 84100; 84443; 84484; 85025; 85610; 85730; 86692; 86703; 87536; 88304; 93005; 96361; 96374; 96375; C9113; J0133; J0295; J0690; J0696; J1170; J1650; J1885; J2175; J2250; J2405; J2765; J3010; J3480; J7030